=== PATIENT | male | born 1995 | race Caucasian/White ===

== ENCOUNTER → 2022-08-30 | Outpatient (CLI) | payer OTHER ==
[2022-08-31 07:07] LABS: RUBELLA AB IGG-REFLAB <0.90 index (Immune >0.99)
[2022-08-31 08:06] LABS: RUBEOLA (MEASLES) IGG 16.5 AU/mL (Immune >16.4)
[2022-09-01 07:06] LABS: QUANTIFERON, TB GOLD PLUS Negative (Negative)
[2022-09-02 08:06] LABS: HEPATITIS BE ANTIBODY Negative (Negative)
== END | disposition home or self-care (01) ==
LOC: LABMN 17:12
PROVIDERS: ATTEND Family Medicine
DX: Z11.3 Encounter for screening for infections with a predominantly sexual mode of transmission (principal); Z02.89 Encounter for other administrative examinations; Z20.1 Contact with and (suspected) exposure to tuberculosis; Z20.828 Contact with and (suspected) exposure to other viral communicable diseases
CPT/HCPCS: 86480; 86592; 86707; 86735; 86762; 86765; 86787; 87350; 87591